=== PATIENT | female | born 1950 | race Hispanic/Latino ===

== ENCOUNTER 2021-12-16 12:27 | Emergency (ER) | payer SELFPAY ==
--- NOTE | ~2021-12-16 | XR_ITS ---
XR knee RT min 4V 12/16/2021 13:04 Indication: Right knee pain. Procedure: 4 views right knee Comparison: No prior studies for comparison. Findings: There is severe tricompartment osteoarthritis of the right knee. There is a probable old he aled medial tibial plateau fracture. No acute fracture or traumatic malalignment. There is varus angu lation. There is subchondral cyst formation in the medial tibial plateau. No foreign bodies. Impression: 1: No acute fracture. 2: Severe osteoarthritis of the right knee. 3: Probable old healed medial tibial plateau fracture versus advanced remodeling secondary to degene rative change. Reviewed, dictated and finalized at location A. Impression: 1: No acute fracture. 2: Severe osteoarthritis of the right knee. 3: Probable old healed medial tibial plateau fracture versus advanced remodeli ng secondary to degenerative change.
[2021-12-16 12:32] VITALS: BP 124/84; PULSE 73; RESP 14; TEMP 36.5; O2SAT 99
--- NOTE | 2021-12-16 13:54 | ED.LOWEXIN ---
HPI - Extremity Injury (Lower) General Chief Complaint: Extremity Injury, Lower Stated Complaint: R knee pain Time Seen by Provider: 12/16/21 13:28 Source: patient and lgsw History of Present Illness HPI Narrative: Patient presents with right knee pain. Patient ports a history of right-sided knee pain with joint effusions. She has had progressive pain over the past 4 days after she stepped and felt like her leg was going to give out. Over the past day or so pain is gotten worse so she came to the ER for evaluation. She attempted Tylenol this morning without relief of her symptoms. She denies any falls or actually injuring her right knee. Her pain is achy, constant, worse with attempting use the right knee. Denies any lower extremity edema focal numbness or tingling Related Data Allergies Allergy/AdvReac Type Severity Reaction Status Date / Time No Known Allergies Allergy Verified 12/16/21 13:09 Review of Systems Review of Systems: CONSTITUTIONAL: Denies fever, chills, or sweats. EYES: Denies visual changes, redness, or discharge. ENT: Denies rhinorrhea, congestion, sore throat, or otalgia. CARDIOVASCULAR: Denies chest pain, palpitations, or edema. RESPIRATORY: Denies cough or dyspnea. GASTROINTESTINAL: Denies abdominal pain, nausea, vomiting, or diarrhea. GENITOURINARY: Denies dysuria or hematuria. SKIN: Denies rash or itching. MUSCULOSKELETAL: Denies back pain, or myalgia. NEUROLOGIC: Denies headache, numbness, dizziness, or weakness. PSYCHIATRIC: Denies anxiety or depression. All systems reviewed & are unremarkable except as noted in HPI and below PMFSH Past Medical History Medical History (Updated 12/16/21 @ 14:00 by Danish Contreras MD) Patient denies significant medical history Social History Social History (Updated 12/16/21 @ 13:57 by Danish Contreras MD) Living arrangements: with family Exam Narrative: GENERAL: Well-appearing, well-nourished, and in no acute distress. HEAD: Normocephalic, atraumatic. EYES: PERRLA and EOMI. ENT: Nares clear, no rhinorrhea or epistaxis. Mucous membranes moist. NECK: Supple. No masses. No JVD EXTREMITIES: Normal range of motion. Mild effusion to the right knee there is mild diffuse tenderness there is no focal bony tenderness no open or draining wounds. No obvious deformity SKIN: Warm, dry, no rash. NEURO: No focal deficits. Alert and oriented x3. PSYCH: Normal mood and affect. Course Vital Signs Vital signs: Vital Signs Temperature 36.5 C 12/16/21 12:32 Pulse Rate 73 12/16/21 12:32 Respiratory Rate 14 12/16/21 12:32 Blood Pressure 124/84 12/16/21 12:32 Pulse Oximetry 99 12/16/21 12:32 Oxygen Delivery Room Air 12/16/21 12:32 Temperature 36.8 C 12/16/21 14:58 Pulse Rate 70 12/16/21 14:58 Respiratory Rate 16 12/16/21 14:58 Blood Pressure 136/78 12/16/21 14:58 Pulse Oximetry 100 12/16/21 14:58 Oxygen Delivery Room Air 12/16/21 12:32 MDM - Extremity Injury (Lower) MDM Narrative Medical decision making narrative: H&P as above, vss, pt looks clinically well, exam with right knee joint effusion no obvious deformity, imaging without acute process, additional labs/img considered, symptomatic relief available as needed, on reevaluation pt continues to looks clinically well. Suspect chronic arthritis, dns fracture, septic joint, major neurovascular compromise. plan to tx/monitor as op w/ pcm f/u findings/plan discussed with pt, pt agree/comfortable with plan, return precautions given Imaging Data Radiologist's impression: Impressions Knee X-Ray 12/16/21 13:13 Impression: 1: No acute fracture. 2: Severe osteoarthritis of the right knee. 3: Probable old healed medial tibial plateau fracture versus advanced remodeling secondary to degenerative change. Discharge Plan Discharge Clinical Impression: Acute knee pain Qualifiers: Laterality: right Qualified Code(s): M25.561 - Pain in right kne
[2021-12-16 14:58] VITALS: BP 136/78; PULSE 70; RESP 16; TEMP 36.8; O2SAT 100
== END 2021-12-16 15:00 | disposition home or self-care (01) ==
PROVIDERS: Emergency Provider Emergency Medicine
DX: M25.561 Pain in right knee (principal); M17.11 Unilateral primary osteoarthritis, right knee
CPT/HCPCS: 73564; 99283

== ENCOUNTER 2024-01-10 08:49 | Emergency (ER) | payer SELFPAY ==
[2024-01-10] VITALS (10 sets, daily range): BP systolic 163–209; BP diastolic 85–96; PULSE 64–83; RESP 17–27; TEMP 36.5–36.6; O2SAT 97–100
--- NOTE | ~2024-01-10 | XR_ITS ---
XR shoulder LT min 2V 01/10/2024 09:18 Indication: Status post fall. Possible shoulder dislocation. Procedure: 5 views left shoulder Comparison: No prior studies for comparison. Findings: There is a posterior shoulder dislocation with possible fracture of the acromion process. C annot exclude underlying glenoid fracture. Acromioclavicular joint appears to be intact. There are in terstitial infiltrates of the left lung, nonspecific. Impression: 1: Posterior left shoulder dislocation with possible fracture of the acromion and glenoid process. Re commend correlation with CT. 2: Interstitial infiltrates of the left lung which may reflect edema or pneumonia. Reviewed, dictated and finalized at location B. Impression: 1: Posterior left shoulder dislocation with possible fracture of the acromion a nd glenoid process. Recommend correlation with CT. 2: Interstitial infiltrates of the left lung which may reflect edema or pneumo rafael.
--- NOTE | ~2024-01-10 | CT_ITS ---
Procedure: CT shoulder LT wo con Ordering provider: Leeann Giang PA-C History: . left shoulder pain, fall, further eval . Comparison: None. Technique: Thin slice axial CT of the No IV contrast was given. Sagittal and coronal reformatted imag es were also obtained and reviewed. Radiation reduction technique utilized. DLP is to 210.94 mGy-cm. Findings: BONES: Posterior dislocation of the humeral is noted compared to the glenoid cavity with impaction in the posterior lip of the glenoid. Fracture of the posterior lip of the glenoid is also noted with displacement medially, posteriorly an d superiorly. Fracture of the acromion process is also noted which may be chronic fracture with a fragment seen ant eriorly and another one posteriorly. Elevation of the humeral head is noted. JOINT SPACES: Ossified cartilaginous fragment or bony fragment is seen in the subscapularis bursa SOFT TISSUES: Joint effusion. IMPRESSION: Posterior dislocation of the humeral head with multiple fractures. The fractures in the posterior lip of the glenoid is acute. Other fractures are most likely chronic. Reviewed, dictated and finalized at location A. IMPRESSION: Posterior dislocation of the humeral head with multiple fractures. The fracture s in the posterior lip of the glenoid is acute. Other fractures are most likely chronic.
--- NOTE | ~2024-01-10 | XR_ITS ---
XR shoulder LT min 2V 01/10/2024 11:36 Indication: Post reduction left shoulder dislocation Procedure: 3 views left shoulder Comparison: 01/10/2024 Findings: Interval reduction of the left humeral head with respect to the glenoid process. There is s uperior subluxation of the humerus. There is fracture posterior lip of the glenoid process. There is an age-indeterminate fracture of the acromion process. Impression: 1: Interval reduction of left glenohumeral joint with fractures of the glenoid process and acromion p rocess. Reviewed, dictated and finalized at location B. Impression: 1: Interval reduction of left glenohumeral joint with fractures of the glenoid process and acromion process.
--- NOTE | 2024-01-10 10:13 | ED.UPPEXIN ---
HPI - Extremity Injury (Upper) General Chief Complaint: Extremity Injury, Upper <RUBIA Rodríguez Last Filed: 01/10/24 12:44> Stated Complaint: L shoulder injury <RUBIA Rodríguez Last Filed: 01/10/24 12:44> Time Seen by Provider: 01/10/24 09:06 <RUBIA Rodríguez Last Filed: 01/10/24 12:44> Source: patient and family <RUBIA Rodríguez Last Filed: 01/10/24 12:44> Mode of arrival: wheelchair <RUBIA Rodríguez Last Filed: 01/10/24 12:44> Limitations: language barrier (family is interpreting) <RUBIA Rodríguez Last Filed: 01/10/24 12:44> History of Present Illness HPI narrative: This is a 73-year-old female that presents to the emergency department for left shoulder injury sustained this morning. Reports she was walking back to her room and tripped and fell and landed on her left shoulder. She did not hit her head or lose consciousness. Reports pain in left shoulder and decreased range of motion. No other injuries or focal areas of pain. Denies weakness or numbness. <Leeann Giang PA-C - Last Filed: 01/10/24 12:44> Related Data Allergies/Adverse Reactions: Allergies Allergy/AdvReac Type Severity Reaction Status Date / Time No Known Allergies Allergy Verified 01/10/24 08:59 <Leeann Giang PA-C - Last Filed: 01/10/24 12:44> Review of Systems Review of Systems: CONSTITUTIONAL: Denies fever CARDIOVASCULAR: Denies chest pain RESPIRATORY: Denies dyspnea. GASTROINTESTINAL: Denies vomiting MUSCULOSKELETAL: Denies back pain NEUROLOGIC: Denies numbness, or weakness. <RUBIA Rodríguez Last Filed: 01/10/24 12:44> All systems reviewed & are unremarkable except as noted in HPI and below <RUBIA Rodríguez Last Filed: 01/10/24 12:44> PMFSH Past Medical History Medical History: Medical History (Updated 07/24/24 @ 12:36 by Leeann Giang PA-C) Patient denies significant medical history <Leeann Giang PA-C - Last Filed: 01/10/24 12:44> Social History Social History: Social History (Updated 12/16/21 @ 13:57 by Danish Contreras, ) Living arrangements: with family <Leeann Giang PA-C - Last Filed: 01/10/24 12:44> Exam Narrative: GENERAL: Elderly, well-nourished, and in no acute distress. HEAD: Normocephalic, atraumatic. EYES: PERRLA and EOMI. ENT: Nares clear, no rhinorrhea or epistaxis. Mucous membranes moist. Oropharynx without tonsillar hypertrophy exudate or other lesions. Bilateral TMs pearly felix non-bulging NECK: Supple. No adenopathy or masses. No midline spinal tenderness CHEST: Clear to auscultation. No respiratory distress. No wheezes rales or rhonchi HEART: Regular rate and rhythm. No murmur heard. Normal peripheral pulses. BACK: No midline thoracic or lumbar spine tenderness EXTREMITIES: Normal range of motion. No obvious deformity. Normal radial pulses SKIN: Warm, dry, no rash. NEURO: No focal deficits. Alert and oriented x3. Cranial nerves 2-12 grossly intact PSYCH: Normal mood and affect <Leeann Giang PA-C - Last Filed: 01/10/24 12:44> Course Course Emergency Course: Patient and family updated on workup and agree with plan of care <Leeann Giang PA-C - Last Filed: 01/10/24 12:44> Vital Signs Vital signs: Vital Signs Temperature 97.7 F 01/10/24 08:54 Pulse Rate 70 01/10/24 08:54 Respiratory Rate 20 01/10/24 08:54 Blood Pressure 186/89 H 01/10/24 08:54 Pulse Oximetry 98 01/10/24 08:54 Oxygen Delivery Room Air 01/10/24 08:54 Temperature 97.9 F 01/10/24 12:11 Pulse Rate 66 01/10/24 12:50 Respiratory Rate 17 01/10/24 12:50 Blood Pressure 168/94 H 01/10/24 12:50 Pulse Oximetry 99 01/10/24 12:50 Oxygen Delivery Room Air 01/10/24 12:11 Oxygen Flow Rate 1 01/10/24 11:31 <Leeann Giang PA-C - Last Filed: 01/10/24 12:44> Vital Signs Temperature 97.7 F 01/10/24 08:54 Pulse Rate 70
[2024-01-10] MEDS: ONDANSETRON INJ 4 MG/2 ML VIAL IV PUSH (10:30)
[2024-01-10] MEDS: MORPHINE SULFATE (*CRX) 4 MG/ML INJ IV PUSH (10:30)
--- NOTE | 2024-01-10 11:36 | PC.NURSE ---
Etomidate given at 1120
--- NOTE | 2024-01-10 11:42 | PC.NURSE ---
Post moderate sedation patient arousable on calling, A&Ox4.
== END 2024-01-10 13:05 | disposition home or self-care (01) ==
PROVIDERS: Emergency Provider Physician Assistant
DX: S42.142A Displaced fracture of glenoid cavity of scapula, left shoulder, initial encounter for closed fracture (principal); R91.8 Other nonspecific abnormal finding of lung field; W01.0XXA Fall on same level from slipping, tripping and stumbling without subsequent striking against object, initial encounter
CPT/HCPCS: 23650; 73030; 73200; 96374; 96375; 99285; J2270; J2405